=== PATIENT | female | born 1950 | race Hispanic/Latino ===

== ENCOUNTER 2018-09-02 08:06 | Emergency (ER) | payer BC, OTHER ==
[2018-09-02 08:50] LABS: BASOPHILS % (AUTO) 0.7 % (0.0-5.0); EOSINOPHILS % (AUTO) 0.5 % (0.0-8.0); HEMATOCRIT 40.8 % (36-48); LYMPHOCYTES % (AUTO) 17.1 % (21.0-51.0); MONOCYTES % (AUTO) 5.1 % (3.0-13.0); NEUTROPHILS % (AUTO) 76.6 % (40.0-77.0); NUCLEATED RED BLOOD CELLS 0.1 % (0.0-0.19); PLATELET COUNT (AUTO) 261 K/uL (130-400); RED CELL DISTRIBUTION WIDTH 13.1 % (11.0-15.5); WHITE BLOOD COUNT (AUTO) 7.6 K/uL (4.8-10.8)
[2018-09-02 08:52] LABS: APPEARANCE,URINE Clear (CLEAR); BILIRUBIN,URINE Negative (NEGATIVE); COLOR,URINE Yellow (YELLOW); GLUCOSE, URINE (UA) TRACE mg/dL (NEGATIVE); KETONES,URINE 15 mg/dL (NEGATIVE); LEUKOCYTE ESTERASE ,URINE Negative (NEGATIVE); NITRATE,URINE Negative (NEGATIVE); OCCULT BLOOD,URINE Negative (NEGATIVE); PH,URINE 6.5 (5.0-8.0); PROTEIN,URINE Negative (NEGATIVE); UROBILINOGEN,URINE 0.2 mg/dL (0.2-1.0)
[2018-09-02 08:53] LABS: CREATININE 0.7 mg/dL (0.5-1.5); POTASSIUM 3.6 mmol/L (3.5-5.1)
[2018-09-02] MEDS ORDERED: SODIUM CHLORIDE 0.9% 1000ML 1,000 ML IV ONE (08:55)
[2018-09-02] MEDS ORDERED: MORPHINE SULFATE 4 MG/1ML SYG ONE (08:55)
[2018-09-02] MEDS ORDERED: ONDANSETRON HCL 4 MG/2 ML VIAL ONE (08:56)
[2018-09-02 09:03] LABS: ALBUMIN 4.2 g/dL (3.5-5.0); TOTAL PROTEIN, SERUM 7.7 g/dL (6.0-8.3)
[2018-09-02 09:21] LABS: BACTERIA,URINE Rare /HPF (None Seen); RBC,URINE 0-1 /HPF (0-1); SQUAMOUS EPITHELIAL CELL,UR 0-2 /HPF (0-2); WBC,URINE None Seen /HPF (0-1)
[2018-09-02] MEDS ORDERED: KETOROLAC TROMETHAMINE 30MG/ML ONE (09:54)
== END 2018-09-02 10:18 | disposition home or self-care (01) ==
LOC: EDH 08:06
DX: K80.20 Calculus of gallbladder without cholecystitis without obstruction (principal); E78.5 Hyperlipidemia, unspecified; I10 Essential (primary) hypertension; E11.9 Type 2 diabetes mellitus without complications
CPT/HCPCS: 36415; 76705; 80053; 81001; 83690; 84484; 85025; 93005; 96374; 96375; 99285; J1885; J2270; J2405; J7030

== ENCOUNTER 2018-11-01 07:19 | Day surgery (SDC) | payer OTHER ==
[2018-10-31 14:01] LABS: APPEARANCE,URINE Clear (CLEAR); BILIRUBIN,URINE Negative (NEGATIVE); COLOR,URINE Yellow (YELLOW); GLUCOSE, URINE (UA) 500 mg/dL (NEGATIVE); KETONES,URINE Negative (NEGATIVE); LEUKOCYTE ESTERASE ,URINE Negative (NEGATIVE); NITRATE,URINE Negative (NEGATIVE); OCCULT BLOOD,URINE Negative (NEGATIVE); PH,URINE 6.5 (5.0-8.0); PROTEIN,URINE Negative (NEGATIVE); UROBILINOGEN,URINE 0.2 mg/dL (0.2-1.0)
[2018-10-31 14:02] LABS: BASOPHILS % (AUTO) 0.5 % (0.0-5.0); EOSINOPHILS % (AUTO) 0.5 % (0.0-8.0); HEMATOCRIT 38.6 % (36-48); LYMPHOCYTES % (AUTO) 19.8 % (21.0-51.0); MEAN CORPUSCULAR HEMOGLOBIN 30.3 pg (27.0-33.0); MEAN CORPUSCULAR HGB CONC 34.4 g/dL (32.0-36.0); MEAN CORPUSCULAR VOLUME 87.9 fL (79-99); MONOCYTES % (AUTO) 4.8 % (3.0-13.0); NEUTROPHILS % (AUTO) 74.4 % (40.0-77.0); PLATELET COUNT (AUTO) 291 K/uL (130-400); RED BLOOD CELL COUNT(AUTO) 4.39 MIL/uL (4.00-5.50); RED CELL DISTRIBUTION WIDTH 13.7 % (11.0-15.5); WHITE BLOOD COUNT (AUTO) 7.9 K/uL (4.8-10.8)
[2018-10-31 14:05] VITALS: BP 146/67
[2018-10-31 14:20] LABS: ALBUMIN 4.1 g/dL (3.5-5.0); BILIRUBIN,DIRECT 0.1 mg/dL (0.0-0.3); BILIRUBIN,TOTAL 0.7 mg/dL (0.2-1.0); CREATININE 0.7 mg/dL (0.5-1.5); POTASSIUM 4.3 mmol/L (3.5-5.1); TOTAL PROTEIN, SERUM 7.6 g/dL (6.0-8.3)
[2018-11-01] VITALS (21 sets, daily range): BP systolic 83–145; BP diastolic 41–75
[~2018-11-01] VITALS: Ht 157.5 cm; Wt 53.7 kg
[~2018-11-01 07:19] MED LIST: AMLO10TA7 PO; ATEN50TA PO; CLON0.5T12 PO; GLIM2TAB3 PO; LOSA100T58 PO; ROSU20TA30 PO; SITA100T12 PO
[2018-11-01] MEDS ORDERED: HEPARIN SODIUM 1000UNIT/ML 10ML VIAL ONE (08:17)
[2018-11-01] MEDS: SODIUM CHLORIDE 0.9% 1000ML 1,000 ML IV SCH ×2 (08:19→11:13)
[2018-11-01] MEDS ORDERED: SUCCINYLCHOLINE 200MG/10ML SYR ONE (08:37)
[2018-11-01] MEDS ORDERED: PROPOFOL 10 MG/ML 20ML VIAL IV ONE (08:37)
[2018-11-01] MEDS ORDERED: LIDOCAINE PF 2% 5ML ABBOJECT ONE (08:37)
[2018-11-01] MEDS ORDERED: DEXAMETHASONE SOD PHOSPHATE 10MG/ML 1ML VIAL ONE (08:37)
[2018-11-01] MEDS ORDERED: GLYCOPYRROLATE 1 MG/5 ML SYRINGE ONE (08:37)
[2018-11-01] MEDS ORDERED: ONDANSETRON HCL 4 MG/2 ML VIAL ONE (08:37)
[2018-11-01] MEDS ORDERED: MIDAZOLAM HCL 1 MG/ML 2ML VIAL ONE (08:38)
[2018-11-01] MEDS ORDERED: NEOSTIGMINE 5MG/5ML SYR IV ONE (08:38)
[2018-11-01] MEDS ORDERED: FENTANYL CITRATE PF 50 MCG/1 ML 2ML VIAL ONE ×2 (08:38→09:05)
[2018-11-01] MEDS ORDERED: ROCURONIUM 10MG/1ML SYR 10 MG/ML ML ONE (08:38)
--- NOTE | 2018-11-01 11:30 | NUR ---
DEEP BREATHING ,AND COUGHS ,INSTRUCTED TO USE PILLOW FOR SUPPORT ,VERBALIZES UNDERSTANDING,,SPOUSE AT BEDSIDE
--- NOTE | 2018-11-01 11:35 | NUR ---
ASSISTED TO BR ,VOIDFS Addendum: 11/01/18 at 1142 by LAMAR WILDER LVN LVN ASSISTED TO BR,AMBULATES WITH STEADY GAIT ,VOIDS ,BACK TO BED ,CALL UNDERWOOD IN REACH
--- NOTE | 2018-11-01 11:50 | NUR ---
SITTING ON SIDE OF BED ,NO COMPLAINTS OF PAIN ,CALL UNDERWOOD IN REACH
--- NOTE | 2018-11-01 12:00 | NUR ---
TO CAR VIA W/C
== END 2018-11-01 12:00 | disposition home or self-care (01) ==
LOC: DAH 07:19
PROVIDERS: ATTEND Surgery
DX: K80.10 Calculus of gallbladder with chronic cholecystitis without obstruction (principal); E11.9 Type 2 diabetes mellitus without complications; K21.9 Gastro-esophageal reflux disease without esophagitis; E78.5 Hyperlipidemia, unspecified; I10 Essential (primary) hypertension; Z98.890 Other specified postprocedural states; Z79.899 Other long term (current) drug therapy; Z82.49 Family history of ischemic heart disease and other diseases of the circulatory system; Z83.3 Family history of diabetes mellitus; F41.9 Anxiety disorder, unspecified
CPT/HCPCS: 36415; 47562; 80048; 80076; 81003; 82948 ×2; 85025; 88304; 93005; A4450; A4600; C1769 ×4; J0330; J1100; J1644; J2001; J2250; J2405; J2704; J2710; J3010 ×2; J3490; J7030 ×2; J7120